=== PATIENT | female | born 2005 | race American Indian/Alaskan Native ===

== ENCOUNTER 2023-12-07 04:27 | Inpatient (IN) | payer SELFPAY ==
[~2023-12-07] VITALS: Ht 167.6 cm; Wt 114.1 kg
[2023-12-07] MEDS ORDERED: CYMB1CAP4 PO (06:21)
[2023-12-07] MEDS ORDERED: HOME MED LIST COMPLETE! XX SCH (10:35)
[2023-12-07] MEDS ORDERED: MOM 30ML SUSPENSION UDC PO PRN (12:00)
[2023-12-07] MEDS ORDERED: IBUPROFEN 400MG TAB PO PRN (12:00)
[2023-12-07] MEDS ORDERED: MAALOX 30 ML SUSP *UDC PO PRN (12:00)
[2023-12-07 14:05] VITALS: BP 136/76; TEMP 97.4; O2SAT 98
[2023-12-07] MEDS: traZODone 50 MG TAB PO PRN (21:06)
[2023-12-07] MEDS: diphenhydrAMINE 25MG CAP PO PRN (21:06)
[2023-12-08 06:39] VITALS: BP_SYST 120; BP_SYST 196; BP_DIAS 84; BP_DIAS 89; TEMP 97.2; O2SAT 98
[2023-12-08] MEDS: VENLAFAXINE **XR** 37.5 MG CAPSULE PO ONE (09:01)
[2023-12-08] MEDS: ACETAMINOPHEN TAB 650MG DOSE (2X325MG) PO PRN (15:09)
[2023-12-08 15:52] VITALS: BP 138/68; TEMP 97.1; O2SAT 97
[2023-12-08 18:37] LABS: BLOOD UREA NITROGEN 12 MG/DL (9-23); CALCIUM LEVEL 9.8 MG/DL (8.5-10.1); CARBON DIOXIDE LEVEL 23 MMOL/L (20-31); CHLORIDE LEVEL 109 MMOL/L (98-107); CREATININE FOR GFR 0.96 MG/DL (0.55-1.30); GLUCOSE, FASTING 97 MG/DL (60-100); POTASSIUM SERUM 3.8 MMOL/L (3.5-5.1); SODIUM LEVEL 138 MMOL/L (136-145)
[2023-12-08 18:39] LABS: THYROID STIMULATING HORMONE 2.352 uIU/ML (0.48-4.17)
[2023-12-08 20:35] LABS: BASO % 0.3 % (0.0-1.0); EOS % 0.1 % (0.0-3.0); HEMATOCRIT 40.7 % (36.0-47.0); HEMOGLOBIN 13.7 g/dl (12.0-15.5); LYMPH # 1.8 10^3/uL (1.5-5.0); LYMPH % 20.7 % (24.0-44.0); MEAN CORPUSCULAR HEMOGLOBIN 28.4 pg (27.0-33.0); MEAN CORPUSCULAR HGB CONC 33.7 g/dl (32.0-36.5); MEAN CORPUSCULAR VOLUME 84.4 fl (80.0-96.0); MONO # 0.6 10^3/uL (0.0-0.8); MONO % 6.4 % (2.0-8.0); NEUTROPHILS # 6.4 10^3/uL (1.5-8.5); NEUTROPHILS % 72.3 % (36.0-66.0); PLATELET COUNT, AUTOMATED 259 10^3/uL (150-450); RED BLOOD COUNT 4.82 10^6/uL (4.00-5.40); WHITE BLOOD COUNT 8.9 10^3/uL (4.0-10.0)
[2023-12-09 06:19] VITALS: BP 138/90; TEMP 97.6; O2SAT 100
[2023-12-09 15:40] VITALS: BP 143/83; TEMP 97.8; O2SAT 99
[2023-12-10 06:19] VITALS: BP 138/86; TEMP 97.7; O2SAT 95
[2023-12-10] MEDS ORDERED: VENL37.598 PO (10:00)
[2023-12-10] MEDS: VENLAFAXINE **XR** 37.5 MG CAPSULE PO ONE (10:09)
== END 2023-12-10 11:37 | disposition home or self-care (01) | DRG 754 ==
LOC: EDBD 04:27 → M ED 04:27 → M ED INP 11:59 → M PSY 14:10
PROVIDERS: ADMIT Psychiatry & Neurology Psychiatry; ATTEND Psychiatry & Neurology Psychiatry
DX: F32.A Depression, unspecified (principal); F41.9 Anxiety disorder, unspecified; F17.290 Nicotine dependence, other tobacco product, uncomplicated; Z81.1 Family history of alcohol abuse and dependence; Z62.810 Personal history of physical and sexual abuse in childhood; Z79.899 Other long term (current) drug therapy; Z91.011 Allergy to milk products; Z90.49 Acquired absence of other specified parts of digestive tract; Z91.51 Personal history of suicidal behavior; Z81.8 Family history of other mental and behavioral disorders